=== PATIENT | female | born 1985 | race Caucasian/White ===

== ENCOUNTER 2017-04-07 12:30 | Emergency (ER) | payer OTHER ==
[~2017-04-07] VITALS: Ht 160 cm; Wt 83.5 kg
[~2017-04-07 12:30] MED LIST: AMOXIL500 MG PO; BACTRIM DS 8001 TA1 PO; BACTRIM DS 8001 TAB PO; BACTROBAN2% TP; BENADRYL25 M1 PO; CELEXA40 MG PO; HYDROCHLOROTHIA1 TA1 PO; KEFLEX 500MG.500 MG PO; LABETALOL 100M100 MG PO; MEDROL 4MG. DOSE4 MG PO; MOTRIN 400MG.400 MG PO; MOTRIN400 MG PO; PERCOCET 5/3251 EACH PO; PHENERGAN 25MG.25 M1 PO; PRENATAL 1 PLUS1 TA2 PO; PYRIDIUM200 M2 PO; SEPTRA DS 800 M1 TAB PO; TESSALON PERLE200 MG PO; TYLENOL ES500 M1 PO; TYLENOL W/CODEI1 TA2 PO; ZITHROMAX Z PA250 MG PO; ZOFRAN 8MG TABLE8 MG PO
--- OUTSIDE RECORDS SUMMARY | 2017-04-07 12:38 | External Medical Summary Rpt | CCD ---
Author Author , SHANTELL STINSON Address Unknown Phone [email or web address] Support Name Relationship Address Phone EFRAIN, Next Of Kin Daljit FORBES [address] [facility] [phone] , [place] [address] Purpose Continuity of Care Document - 10-30-2012 through 2016 Problems Code Diagnosis DOS Provider Status N39.0 URINARY TRACT INFECTION, SITE NOT SPECIFIED Allergies, Adverse Reactions, Alerts Type Drug Allergy Food Allergy Adverse Reaction to Substance Substance Reaction Severity COCONUT (DRUG) Unknown Unknown Morphine SHAKING Mild Terbutaline Unknown Unknown Hydrocodone Unknown Mild Coconut Unknown Unknown Medications Na ND Rx Da Fi Fi Am Da Di Ph RX Ph St me C No te ll ll ou ys ag ar # ys at rm s nt no ma ic us Or Da si cy ia de te s n re d KE 00 11 2 No TO 09 -1 RO 30 2- Lo LA 31 20 ng C 40 13 er 10 1 Ac MG ti ve TA BL ET CE 60 11 0 No FA 50 -1 ZO 50 1- Lo LI 74 20 ng N 90 13 er 1 5 GM Ac ti ve AL SO 00 11 0 No DI 40 -1 UM 97 1- Lo 98 20 ng CH 43 13 er LO 7 RI Ac DE ti ve 0. 9% SO ALMA TI ON LA [address] 40 -1 AT 97 1- Lo ED 95 20 ng 30 13 er RI 9 NG Ac ER ti S ve IN JE CT IO N PI 11 11 0 No TO 11 -1 CI 11 1- Lo N 11 20 ng 30 13 13 er 3 UN Ac IT ti S/ ve LR 50 0M L IV MA 00 11 3 No PA 90 -1 P 41 1- Lo 32 98 20 ng 5 26 13 er MG 1 Ac TA ti BL ve ET AN 00 11 3 No TA 11 -1 CI 30 1- Lo D [address] 74 13 er US 0 Ac AN ti TI ve -G RE LF LI Q LA 20 11 3 No NO 45 -1 LI 18 1- Lo N 71 20 ng CR 22 13 er EA 6 M Ac 56 ti GM ve DC 59 11 0 No SO 76 -1 WI 25 1- Lo OS 00 20 ng TO 80 13 er L 1 20 Ac 0 ti MC ve G TA BL ET OX 00 11 3 No YC 40 -1 OD 60 1- Lo ON 55 20 ng E 26 13 er HC 2 L Ac 5 ti MG ve TA BL ET WI 51 11 3 No OM 07 -1 ET 90 1- Lo GARCIA 89 20 ng ZI 52 13 er NE 0 Ac 25 ti ve MG TA BL ET SE 67 11 3 No NO 61 -1 KO 80 1- Lo T- 31 20 ng S 00 13 er TA 1 BL Ac ET ti ve SI 63 11 3 No ME 73 -1 TH 90 1- Lo IC 22 20 ng ON 51 13 er E 0 80 Ac ti MG ve TA B CH EW LA 00 11 0 No BE 17 -1 TA 24 1- Lo LO 36 20 ng L 46 13 er HC 0 L Ac 10 ti 0 ve MG TA BL ET KE 00 11 0 No TO 40 -1 RO 93 1- Lo LA 79 20 ng C 50 13 er 30 1 Ac MG ti /M ve L AL Sa 63 10 0 No li 80 -1 ne 70 9- Lo 10 20 ng Fl 07 13 er us 5 h Ac 10 ti ML ve Sy ri ng e Vital Signs 03-10-2013 08:20 Name Value Interpretat Reference Comment ion Range Weight 197 [lb_av] Measured Weight 89.359 kg Measured 02-15-2013 20:18 Name Value Interpretat Reference Comment ion Range Body 98.2 [degF] Temperature BP 93 mm[Hg] Diastolic BP Systolic 150 mm[Hg] Heart 97 /min Rate/Pulse O2% 96 % Respiratory 19 /min Rate 02-15-2013 18:41 Name Value Interpretat Reference Comment ion Range BP 87 mm[Hg] Diastolic BP Systolic 136 mm[Hg] Heart 101 /min Rate/Pulse O2% 98 % Respiratory 20 /min Rate 10-30-2012 19:36 Name Value Interpretat Reference Comment ion Range BP 84 mm[Hg] Diastolic BP Systolic 120 mm[Hg] Heart 87 /min Rate/Pulse O2% 97 % Respiratory 20 /min Rate 10-30-2012 17:35 Name Value Interpretat Reference Comment ion Range Body 97.9 [degF] Temperature BP 75 mm[Hg] Diastolic BP Systolic 131 mm[Hg] Heart 102 /min Rate/Pulse O2% 97 % Respiratory 20 /min Rate Results Labs Lab Lab Date Result Refere Interp Status Commen Order Detail nces retati t Range on URINALYSIS/COMPLETE (03-10-2013 09:21) URINE 11-11-2 YELLOW YELLOW complet COLOR 013 ed 09:21 URINE 11-11-2 Sl CLEAR complet APPEARA 013 Cloudy ed NCE 09:21 URINE 11-11-2 NEGATIV NEG complet GLUCOSE 013 E ed - 09:21 DIPSTIC K URINE 11-11-2 NEGATIV NEG complet BILIRUB 013 E ed IN - 09:21 DIPSTIC K URINE 11-11-2 NEGATIV NEG complet KETONE 013 E mg/dL ed 09:21 URINE 11-11-2 1.010 1.005-1 complet SPECIFI 013 UNK .030 ed C 09:21 GRAVITY URINE 11-11-2 2+ NEG complet BLOOD 013 ed 09:21 URINE 11-11-2 7.5 UNK 5.0-8.5 complet PH 013 ed 09:21 URINE 11-11-2 NEGATIV NEG complet PROTEIN 013 E mg/dL ed - 09:21 DIPSTIC K URINE 11-11-2 0.2 NEG complet UROBILI 013 E.U./dL ed NOGEN - 09:21 DIPSTIC K URINE 11-11-2 NEGATIV NEG complet NITRATE 013 E ed - 09:21 DIPSTIC K URINE 11-11-2 NEGATIV NEG complet LEUK 013 E ed ESTERAS 09:21 E URINE 11-11-2 10-20 0 complet RBC 013 rbc/hpf ed 09:21 URINE 11-11-2 OCC O complet WBC 013 wbc/hpf ed 09:21 URINE 11-11-2 3-5 0-5 complet SQUAMOU 013 #/hpf ed S CELLS 09:21 URINE 11-11-2 TRACE O complet BACTERI 013 ed A 09:21 pH BldCo (03-10-2013 07:45) pH 11-11-2 7.41 7.35-7. complet BldCo 013 UNK 45 ed 07:45 CBC with AUTO DIFF (03-10-2013 05:35) WBC # 11-11-2 11.4 4.8-10. complet Bld 013 K/MM3 8 ed Auto 05:35 RBC # 11-11-2 4.07 4.2-5.4 complet Bld 013 M/mm3 ed Auto 05:35 Hgb 11-11-2 11.7 12.2-16 complet Bld-mCn 013 g/dL .2 ed c 05:35 Hct Fr 11-11-2 34.1 % 37.0-47 complet Bld 013 .0 ed 05:35 MCV RBC 11-11-2 84.0 fl 82.2-97 complet 013 .8 ed 05:35 MCH RBC 11-11-2 28.7 pg 27-31.2 complet Qn 013 ed Auto 05:35 MEAN 11-11-2 34.1 31.8-35 complet CORPUSC 013 g/dl .4 ed ULAR 05:35 HGB CONC RDW RBC 11-11-2 16.8 % 11.5-17 complet Auto 013 .5 ed 05:35 Platele 11-11-2 235 142-424 complet t Bld 013 K/mm3 ed Ql 05:35 Manual MEAN 11-11-2 9.2 fl 7.4-10. complet PLATELE 013 4 ed T 05:35 VOLUME Granulo 11-11-2 75.8 % 37.0-80 complet cytes 013 .0 ed Fr Bld 05:35 Auto LYMPH % 11-11-2 19.8 % 10-50.0 complet 013 ed 05:35 Monocyt 11-11-2 3.8 % 1.7-9.3 complet es Fr 013 ed Bld 05:35 Auto Eosinop 11-11-2 0.5 % 0.1-12. complet hil Fr 013 0 ed Bld 05:35 Auto Basophi 11-11-2 0.2 % 0.1-2.0 complet ls Fr 013 ed Bld 05:35 Auto Granulo 11-11-2 8.7 1.8-7.8 complet cytes # 013 K/mm3 ed Bld 05:35 Auto Lymphoc 11-11-2 2.3 0.7-4.5 complet ytes Fr 013 K/mm3 ed Bld 05:35 Auto Monocyt 11-11-2 0.4 0.1-1.0 complet es # 013 K/mm3 ed Bld 05:35 Auto Eosinop 11-11-2 0.1 0.0-0.4 complet hil # 013 K/mm3 ed Bld 05:35 Auto Basophi 11-11-2 0.0 0-0.2 complet ls # 013 K/MM3 ed Bld 05:35 Auto COMPREHENSIVE METABOLIC PANEL (02-15-2013 18:25) Glucose 84 74-106 complet 013 mg/dL ed Bld-mCn 18:25 c BUN 8 mg/dL 7-18 complet Bld-mCn 013 ed c 18:25 Creat 2 0.7 0.6-1.0 complet SerPl-m 013 mg/dL ed Cnc 18:25 ESTIMAT 167 50-200 complet ED 013 ML/MIN ed CREATIN 18:25 INE CLEARAN CE GFR 101 59- complet (ESTIMA 013 ML/MIN ed MATT) 18:25 Sodium 137 136-145 complet SerPl-s 013 mmoL/L ed Cnc 18:25 Potassi 3.5 3.5-5.1 complet um 013 mmoL/L ed SerPl-s 18:25 Cnc Chlorid 104 98-107 complet e 013 mmoL/L ed SerPl-s 18:25 Cnc CO2 21 21.0-32 complet SerPl-s 013 mmoL/L .0 ed Cnc 18:25 Calcium 02-15- 8.6 8.5-10. complet 013 mg/dL 1 ed SerPl-m 18:25 Cnc Prot 02-15- 6.8 6.4-8.2 complet SerPl-m 013 gm/dL ed Cnc 18:25 Albumin 02-15-2 2.4 3.4-5.0 complet 013 gm/dL ed SerPl-m 18:25 Cnc Globuli 02-15-2 4.4 1.3-3.2 complet n 013 gm/dL ed Ser-mCn 18:25 c Albumin 02-15-2 0.5 UNK 1.1-1.8 complet /Glob 013 ed SerPl-m 18:25 Rto Bilirub 02-15-2 0.2 0.2-1.0 complet 013 mg/dL ed SerPl-m 18:25 Cnc AST 02-15- 22 U/L 15-37 complet SerPl-c 013 ed Cnc 18:25 ALT 10-19-2 43 U/L 30-65 complet SerPl-c 013 ed Cnc 18:25 ALP 10-19-2 168 U/L 50-136 complet SerPl-c 013 ed Cnc 18:25 D Dimer PPP (02-15-2013 18:25) D Dimer 10-19-2 1180 0-400 High complet PPP 013 ng/mL alert ed 18:25 CBC with AUTO DIFF (02-15-2013 18:25) WBC # 10-19-2 12.7 4.8-10. complet Bld 013 K/MM3 8 ed Auto 18:25 RBC # 10-19-2 3.95 4.2-5.4 complet Bld 013 M/mm3 ed Auto 18:25 Hgb 10-19-2 11.7 12.2-16 complet Bld-mCn 013 g/dL .2 ed c 18:25 Hct Fr 10-19-2 34.4 % 37.0-47 complet Bld 013 .0 ed 18:25 MCV RBC 10-19-2 87.3 fl 82.2-97 complet 013 .8 ed 18:25 MCH RBC 10-19-2 29.7 pg 27-31.2 complet Qn 013 ed Auto 18:25 MEAN 10-19-2 34.0 31.8-35 complet CORPUSC 013 g/dl .4 ed ULAR 18:25 HGB CONC RDW RBC 10-19-2 16.4 % 11.5-17 complet Auto 013 .5 ed 18:25 Platele 10-19-2 257 142-424 complet t Bld 013 K/mm3 ed Ql 18:25 Manual MEAN 10-19-2 8.9 fl 7.4-10. complet PLATELE 013 4 ed T 18:25 VOLUME Granulo 10-19-2 71.6 % 37.0-80 complet cytes 013 .0 ed Fr Bld 18:25 Auto LYMPH % 10-19-2 22.6 % 10-50.0 complet 013 ed 18:25 Monocyt 10-19-2 5.0 % 1.7-9.3 complet es Fr 013 ed Bld 18:25 Auto Eosinop 10-19-2 0.6 % 0.1-12. complet hil Fr 013 0 ed Bld 18:25 Auto Basophi 10-19-2 0.2 % 0.1-2.0 complet ls Fr 013 ed Bld 18:25 Auto Granulo 10--2 9.1 1.8-7.8 complet cytes # 013 K/mm3 ed Bld 18:25 Auto Lymphoc 02-15-2 2.9 0.7-4.5 complet ytes Fr 013 K/mm3 ed Bld 18:25 Auto Monocyt 02-15-2 0.6 0.1-1.0 complet es # 013 K/mm3 ed Bld 18:25 Auto Eosinop 02-15-2 0.1 0.0-0.4 complet hil # 013 K/mm3 ed Bld 18:25 Auto Basophi 02-15-2 0.0 0-0.2 complet ls # 013 K/MM3 ed Bld 18:25 Auto Encounters Encounter Start End Date Code Location Performer Type Date Inpatient MADONNA Deshpande MD (IN) 3 05:05 3 10:35 [facility] Emergency MG Macias (ER) 3 18:45 3 20:20 [facility] Emergency MG Odom MD (ER) 3 16:56 3 19:37 [facility]
--- OUTSIDE RECORDS SUMMARY | 2017-04-07 12:38 | External Medical Summary Rpt | CCD ---
Author Author [employer]duent Organization [employer] Address Unknown Phone Unavailable Purpose Continuity of Care Document - through 2016
--- OUTSIDE RECORDS SUMMARY | 2017-04-07 12:38 | External Medical Summary Rpt | CCD ---
Demographics Preferred Language French Marital Status Unknown Samaritan Affiliation Unknown Race Unknown Ethnic Group Unknown Author Author , SHANTELL STINSON Address Unknown Phone Immunization No patient found.
--- OUTSIDE RECORDS SUMMARY | 2017-04-07 12:38 | External Medical Summary Rpt | CCD ---
Author Author , SHANTELL STINSON Address Unknown Phone [email or web address] Support Name Relationship Address Phone EFRAIN, Next Of Kin Daljit FORBES +[address] [facility] [phone] , [place] [address] Purpose Continuity of Care Document - 10-30-2012 [...] 6 M Ac 56 ti GM ve RI 59 11 0 No SO 76 -1 LA 25 1- Lo OS 00 20 ng TO 80 13 er L 1 20 Ac 0 ti MC ve G TA BL ET OX 00 11 3 No YC 40 -1 OD 60 1- Lo ON 55 20 ng E 26 13 er HC 2 L Ac 5 ti MG ve TA BL ET LA 51 11 3 No OM 07 -1 [...] Deshpande MD (IN) 3 05:05 3 10:35 [facility] Emergency MG Macias (ER) 3 18:45 3 20:20 [facility] E. Emergency MG Odom MD (ER) 3 16:56 3 19:37 [facility]
--- OUTSIDE RECORDS SUMMARY | 2017-04-07 12:38 | External Medical Summary Rpt | CCD ---
Demographics Preferred Language Tamazight Marital Status Unknown Caodaism Affiliation Unknown Race Unknown Ethnic Group Unknown Author Author , SHANTELL STINSON Address Unknown Phone Immunization No patient found.
--- NOTE | 2017-04-07 13:53 | Urgent Treatment Center Report ---
History of Present Issue Date/Time Seen by Provider 04/07/17 1348 Visit Reason Pt arrived:Walked Presenting Problem:PT C/O CHEST CONGESTION, COUGH, HARD TO BREATHE, NO APPETITE, HOT AND COLD FLASHES. Location if Accident: Onset of symptoms date/time:/ or onset unknown for:MEDICAL HX UNKNOWN Have you (or family members/close friends) recently traveled outside the [place]? N If Yes, where/when: Have you had exposure to infectious disease within the past month? TB? Other? Specify: Source patient, RN notes reviewed Exam Limitations no limitations Comment 31-year-old female presents for nasal congestion,, cough, sore throat, and vomiting for 4 days. Patient states similar to her children was diagnosed with strep and the others were diagnosed with flu last week. ALLERGIES Coded Allergies: COCONUT (DRUG) (From COCONUT (FOOD/DRUG)) (10/24/15) Coconut (From COCONUT (FOOD/DRUG)) (10/24/15) Penicillins (10/24/15) morphine (10/24/15) Home Medications Reported Medications LISINOPRIL/HYDROCHLOROTHIAZIDE (Lisinopril-Hctz 20-12.5 MG Tab) 1 TAB PO DAILY CITALOPRAM HYDROBROMIDE (Citalopram HBr) 40 MG PO DAILY History Medical History General CAD? No Angina: No ND: No Hypertension? Yes Hyperlipidemia? No CHF? No DVT? No PE? No COPD? No Asthma? No Anemia? No GERD? No Gastric ulcers? No GI Bleed? No Hernia? No Thyroid Problems? No Hypothyroidism? No CVA? No Seizures? No Diabetes? No Renal Insuffiency? No UTI? No Stones? No BPH? No GB Disease: No Nephritic Syndrome? No Asplenia? No Hepatitis? No Sickle Cell Disease? No Arthritis? No Migraines? Yes Cataracts? No Glaucoma? No MRSA? No HIV? No TB? No Anxiety? Yes Depression? Yes Cancer? No More? 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 Respiratory see HPI, cough Gastrointestinal see HPI, vomiting Physical Exam Vital Signs Vital Signs Date Time Temp Pulse Resp B/P Pulse O2 O2 Flow FiO2 Ox Delivery Rate 04/07 1328 98.1 115 20 155/91 97 - WBC >12,000 or <4,000 or 10% bands? 2 or more SIRS Criteria Met? B/P:155/91 MAP:112 Creatinine >2.0? UA output<0.5ml/kg/hr for 2 hrs? Platelet count >100,000? Lactate >2.0mmol/1? INR >1.2 or PTT > than 60 sec? Evidence of Organ Dysfunction? Provider documented clinical suspician of infection? Sepsis Criteria Count: 2 Sepsis Risk: General Appearance normal appearance, no apparent distress Eye Exam - bilateral eye normal exam, bilateral eye PERRL, bilateral eye EOMI Ear, Nose, Throat sinus pain/drainage, nasal congestion, pharyngeal erythema Neck normal inspection, full range of motion Respiratory Status Yes: trachea midline, chest symmetrical, non tender chest. No: respiratory distress. Lung Sounds bilateral: normal breath sounds, lungs clear. Cardiovascular normal exam, regular rate/rhythm, no peripheral edema Neurologic alert, normal exam, oriented x 3 Medical Decision Making LABS/Meds/Orders Pt receiving controlled substance in ED? No Departure Departure Time of Disposition 1351 Disposition DC Home or Self Care(routine) Clinical Impression Primary Impression: Cold Condition STABLE Patient Instructions Common Cold, DI for Common Cold Additional Instructions Tylenol or Motrin as needed for pain or fever Follow-up with primary care this week if no improvement Oh diet Increase fluids If symptoms worsen or do not improve return or be seen in the ER Discharge Counseling Counseled pt/family regarding diagnosis, test results, medications/RX, home care, follow up needs at 1411
[2017-04-07 14:18] VITALS: BP 155/91
[2017-04-07 14:44] LABS: UTC STREP SCREEN NOT DETECTED (NOTDETECTED)
== END 2017-04-07 14:19 | disposition home or self-care (01) ==
LOC: UTC 12:30
PROVIDERS: Nurse Practitioner Family
DX: J06.9 Acute upper respiratory infection, unspecified (principal); Z88.0 Allergy status to penicillin; I10 Essential (primary) hypertension

== ENCOUNTER → 2017-04-13 | Outpatient (CLI) | payer OTHER ==
--- NOTE | 2017-04-25 09:39 | RADIOLOGY REPORT PS360 ---
DIG MAMM-DX JCARLOS W/CAD COMPARISON: None INDICATION: Bilateral breast pain more prominent left than right, there is a history of breast cancer patient maternal grandmother diagnosed after menopause TECHNIQUE: Standard MLO and CC views were obtained along with exaggerated left cc view FINDINGS: Moderate diffuse fibroglandular densities are seen throughout both breasts. There is no suspicious lesion and no suspicious microcalcifications. IMPRESSION: Moderate diffuse breast density with no suspicious lesion seen recommend the patient begin annual screening mammography at the age of 41 BI-RADS CATEGORY: 1_Negative RECOMMENDED FOLLOWUP: 12M 12 MONTH FOLLOW-UP after the age of 40 (A letter has been sent to the patient regarding results of the study.)
== END ==
LOC: RAD 04-11 15:15
DX: N64.4 Mastodynia (principal)
CPT/HCPCS: G0204